=== PATIENT | male | born 1950 | race Hispanic/Latino ===

== ENCOUNTER 2019-04-29 23:57 | Inpatient (IN) | payer OTHER ==
[2019-04-30] MEDS ORDERED: Meclizine HCl 25 MG TAB ONE (00:18)
[2019-04-30 00:47] LABS: #Basophils 0.1 thou/uL (0.0-0.2); #Eosinphils 0.1 thou/uL (0.0-0.7); #Lymphocytes 3.3 thou/uL (1.20-3.40); #Neutrophils 7.2 thou/uL (1.40-6.50); %Basophils 0.9 % (0.0-1.0); %Lymphocytes 28.6 % (21.0-51.0); %Monocytes 8.4 % (0.0-10.0); %Neutrophils 61.2 % (42.0-75.0); Mean Corpuscular HGB CONC 34.6 g/dL (32.0-36.0); Mean Corpuscular Hemoglobin 29.9 pg (27.0-31.0); Mean Corpuscular Volume 86.3 fL (78.0-98.0); Mean Platelet Volume 6.5 fL (7.4-10.4); Platelet Count 257 thou/uL (130-400); RBC Distribution Width 12.1 % (11.5-14.5); Red Blood Cell (RBC) Count 4.68 mill/uL (4.70-6.10); White Blood Cell (WBC) Count 11.7 thou/uL (4.8-10.8)
[2019-04-30 00:53] LABS: INR-International Normal Ratio 1.1; PTT 24.8 SEC (22.9-36.1); Prothrombin Time 14.1 SEC (12.0-14.7)
[2019-04-30 01:06] LABS: ALT (SGPT) 19 U/L (8-55); AST (SGOT) 20 U/L (5-34); Albumin 4.3 g/dL (3.4-4.8); Alkaline Phosphatase 67 U/L (40-110); Anion Gap 15 mmol/L (10-20); BUN (Urea Nitrogen) 28 mg/dL (8.4-25.7); Bilirubin, Total 0.4 mg/dL (0.2-1.2); Calc. Creatinine Clearance 0 mL/min (70-130); Calcium 8.9 mg/dL (7.8-10.44); Carbon Dioxide 23 mmol/L (23-31); Chloride 100 mmol/L (98-107); Estimated GFR-MDRD 42; Globulin 3.1 g/dL (2.4-3.5); Glucose 231 mg/dL (80-115); Potassium 3.1 mmol/L (3.5-5.1); Protein, Total 7.4 g/dL (5.8-8.1); Sodium 135 mmol/L (136-145)
[2019-04-30] MEDS ORDERED: Promethazine HCl 25 MG/ML VIAL ONE (01:40)
[2019-04-30] MEDS ORDERED: Aspirin Chewable 81 MG TAB ONE (02:06)
[2019-04-30 04:31] VITALS: BMI 42.4
[2019-04-30] MEDS: Dextrose 5 % And 0.9 % NaCl 1,000 ML IV SCH ×2 (05:34→11:55)
[2019-04-30] MEDS ORDERED: Meclizine HCl 25 MG TAB PO PRN (06:52)
--- NOTE | 2019-04-30 07:49 | CT ---
PRELIMINARY REPORT/[facility]/EMERGENCY AFTER HOURS PROCEDURE: EXAM: CT Head Without Intravenous Contrast. CLINICAL HISTORY: Vertigo, dizziness, nausea, sob TECHNIQUE: Axial computed tomography images of the head/brain without intravenous contrast. COMPARISON: None provided. FINDINGS: BRAIN: No acute intraparenchymal hemorrhage. No mass lesion. No CT evidence for acute territorial inf arct. No midline shift or extra-axial collection. Areas of hypodensity in the periventricular white matter likely related to chronic microvascular ischemic change. VENTRICLES: No hydrocephalus. ORBITS: The orbits are unremarkable. SINUSES AND MASTOIDS: The paranasal sinuses and mastoid air cells are clear. SOFT TISSUES: No significant facial or scalp soft tissue swelling evident. No radiopaque foreign body is seen. BONES: No acute skull fracture. IMPRESSION: No acute intracranial abnormality. ELECTRONICALLY SIGNED BY: Angela Davis D.O. Apr 30, 2019 12:49:18 AM ELEMENTARY EDUCATION TEACHER FINAL REPORT CT BRAIN WITHOUT CONTRAST: I agree with the preliminary report by Dr. Angela Davis for [facility]. Transcribed Date/Time: 04/30/2019 8:11 AM
--- NOTE | 2019-04-30 08:32 | MRI ---
MRI BRAIN WITHOUT CONTRAST: HISTORY: Nystagmus, vertigo, dizziness, nausea CORRELATION: CT scan from 04/30/2019. FINDINGS: No restricted diffusion is seen. There are multiple foci of T2 prolongation in the periventricular wh ite matter, consistent with chronic small vessel ischemic disease. The ventricular size is appropriate and the basilar cisterns are patent. No evidence of acute infarct, hemorrhage, midline shift or abnormal extra-axial fluid collections is seen. The visualized paranasal sinuses and mastoid air cells are well-aerated. IMPRESSION: No evidence of acute intracranial process.
[2019-04-30] MEDS ORDERED: Acetaminophen 325 MG TAB PO PRN (08:38)
[2019-04-30] MEDS ORDERED: Bisacodyl 5 MG TAB PO PRN (08:38)
[2019-04-30] MEDS ORDERED: Fluticasone Propionate Nasal Spray 16 gm Bottle NASAL PRN (08:38)
[2019-04-30] MEDS ORDERED: traZODone HCl 50 MG TAB PO PRN (08:38)
--- NOTE | 2019-04-30 08:41 | CON ---
DATE OF CONSULTATION: 04/30/2019 CONSULTING PHYSICIAN: Hospitalist Services. IMPRESSION: 1. Probable brainstem stroke. 2. Aspirin failure. 3. Diabetes. 4. Hypertension. PLAN: 1. Add Plavix. 2. Complete stroke workup. HISTORY OF PRESENT ILLNESS: Mr. Ayala is a 68-year-old gentleman, who presented last night with acute unsteadiness, double vision, nausea, mild dysarthria, and some dysmetria. His reports things are better today compared to last night. He has never had anything like this before. PAST MEDICAL HISTORY: As listed above. ALLERGIES: NONE. SOCIAL HISTORY: Positive for alcohol. No tobacco. FAMILY HISTORY: Noncontributory. REVIEW OF SYSTEMS: Ten-system review of systems is otherwise negative. PHYSICAL EXAMINATION: VITAL SIGNS: Blood pressure 142/75, pulse 78, respirations 20, and temperature 98.5. HEENT: Pupils are equal. Conjunctivae clear. There was a mild skew deviation of the eyes with a slight elevation of the left eye compared to the right. Oropharynx is clear. NECK: Supple. No lymphadenopathy. EXTREMITIES: No cyanosis or edema. NEUROLOGIC: He is alert and cooperative. His speech is fluent and clear. Cranial nerves were intact, other than the double vision. Motor exam showed good strength bilaterally. There was no tremor or dysmetria. Sensation was intact to touch. Gait was not tested. No abnormal movements were seen. LABORATORY STUDIES: CBC and coags were normal. Chemistry showed a blood sugar over 200. Renal function was mildly impaired with a creatinine of 1.64. CT scan of the brain without contrast was unremarkable. SUMMARY: Overall the clinical picture appears consistent with a brainstem stroke. Can add Plavix and complete his vascular workup. Job ID: [id number]
[2019-04-30] MEDS ORDERED: Potassium Chloride 20 MEQ TAB PO SCH (08:45)
[2019-04-30] MEDS ORDERED: Iopamidol-370 76% 500 ML 1 ML ONE (10:16)
[2019-04-30] MEDS: metFORMIN 500 MG TAB PO SCH ×2 (10:40→20:29)
[2019-04-30] MEDS: Loratadine 10 MG TAB PO SCH (10:40)
[2019-04-30] MEDS: Aspirin 81 mg Enteric Coated Tablet PO SCH (10:40)
[2019-04-30] MEDS: glipiZIDE 5 MG TAB PO SCH ×2 (10:40→20:29)
[2019-04-30] MEDS: Lisinopril 20 MG TAB PO SCH (10:41)
[2019-04-30] MEDS: Magnesium Oxide 400 MG TAB PO SCH (10:41)
[2019-04-30] MEDS: Cyanocobalamin (Vitamin B-12) 1,000 MCG TAB PO SCH (10:41)
[2019-04-30] MEDS: Alogliptin 6.25 MG TAB PO SCH (10:41)
--- NOTE | 2019-04-30 10:54 | CT ---
CTA OF THE HEAD AND NECK UTILIZING IV CONTRAST AND 3D REFORMATTED IMAGING: COMPARISON: MRI of the brain dated 04/30/2019 at 8:[address] of the brain dated 04/30/2019 at 12:26 a.m. FINDINGS: CTA OF THE NECK: There is emphysematous change involving both lung apices. There are vascular calcifications involvin g the thoracic aorta. The right brachiocephalic artery origin is widely patent. The right subclavia n is patent. The right common carotid artery is patent. Right internal carotid artery is tortuous b ut patent. The proximal aspect of the right external iliac artery is patent. Left common carotid artery is patent. The bifurcation is patent. The left internal carotid artery w ithin the cervical course is patent. Left subclavian artery is patent. Left vertebral artery along its cervical course is patent and slightly dominant. The right vertebral artery is slightly diminutive but patent along its cervical course. The visualized parotid , submandibular, and thyroid glands are normal-appearing. No pathologically e nlarged lymph nodes are evident. The visualized jugular veins appear patent. The visualized aerodigestive tract is patent. There is scattered degenerative and osteoarthritic change. No acute osseous abnormality is evident. There is a nonspecific mildly enlarged 1 mm right paratracheal lymph node. IMPRESSION: 1. No hemodynamically significant stenosis seen within the neck. 2. Tortuosity of the right internal carotid artery without hemodynamically significant stenosis. 3. Diminutive right and dominant left vertebral artery. 4. Emphysema. 5. Nonspecific right paratracheal enlarged lymph node. CTA OF THE HEAD: There is multifocal stenosis and eventual occlusion of the distal right intracranial vertebral artery . Left vertebral artery is patent. The intracranial ICAs are patent. There are moderate calcificat ions involving the cavernous carotids and supraclinoid ICAs. Both ACAs and MCAs are patent. No aneu rysmal dilatation is grossly evident. There is a origin of the right BACON STRINGER. Left posterior comm unicating and left BACON STRINGER appear patent. No definite abnormal enhancement is seen within the brain. The orbits are intact. The skull and ext racranial soft tissues are unremarkable appearing. 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 No a dditional hemodynamically significant stenosis or occlusion is evident.
[2019-04-30] MEDS ORDERED: Atorvastatin Calcium 10 MG TAB PO SCH (21:00)
[2019-04-30] MEDS ORDERED: Amlodipine 5 MG TAB PO SCH (21:00)
--- NOTE | 2019-04-30 22:44 | HP ---
CHIEF COMPLAINT: Diplopia. HISTORY OF PRESENT ILLNESS: The patient is a 68-year-old male with a history of diabetes, hypertension, and hyperlipidemia, who presents to the hospital with complaints of diplopia x1 day. The patient stated that he had some soup last night, felt very nauseated, threw up a few times, got very weak. After that, he started throwing up again, got a little short of breath and at that time, he got very very weak and started having some double vision. He denies any chest tightness, any diarrhea, any fevers or chills. The patient at this time was brought into the hospital for further evaluation. Per the ER note, it was stated that he had a vertigo. However, I questioned him multiple times, he stated that he never had any vertigo. PAST MEDICAL HISTORY: As the followin. He has a history of hypertension. 2. Diabetes. 3. High cholesterolemia. 4. Obesity. PAST SURGICAL HISTORY: He has had no surgical history. SOCIAL HISTORY: The patient drinks every day. He is a former tobacco user. He smokes cigarettes over 10 years. Denies any drug use. ALLERGIES: NO KNOWN DRUG ALLERGIES. MEDICATIONS: He is on the followin. Amlodipine 5 mg daily. 2. Aspirin 81 mg daily. 3. Atorvastatin 10 mg daily. 4. Glipizide 5 mg twice a day. 5. Hydrochlorothiazide 12.5 daily. 6. Lipitor 40 mg daily. 7. Metformin 750 twice a day. 8. Trazodone 200 mg daily. REVIEW OF SYSTEMS: All negative until mentioned in HPI. FAMILY HISTORY: History of diabetes and hypertension. LABORATORY RESULTS: WBC is 11.7, hemoglobin 14.9, hematocrit 40.4, platelets of 257. Chemistry; sodium 135, potassium 3.1, BUN of 20, creatinine 1.64. Troponin x1 is negative. He did have a brain MRI, which indicated chronic vascular disease. PHYSICAL EXAMINATION: VITAL SIGNS: Temperature 97.8, 87, 16, 94% on room, 155/81. GENERAL: He is awake, alert, oriented x3, does not appear in distress. CV: S1, S2 present. No murmurs, rubs, or gallops. LUNGS: Clear to auscultation. No rhonchi or wheezes noted. ABDOMEN: Soft and nontender. Bowel sounds are present x2. EXTREMITIES: No edema. Peripheral pulses are present x2. NEUROVASCULAR: No focal deficits noted. SKIN: No cuts, lesions, or bruises noted. ASSESSMENT AND PLAN: The patient is a very pleasant 68-year-old male, who presents to the hospital with complaints of diplopia. 1. Diplopia. 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 I will consult Neurosurgery. It is possible that the patient started having nausea and vomiting, dropped his pressures a little bit, which could have caused his diplopia, it is unclear. I will also get Ophthalmology to see him. 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 He had diplopia with both eyes open and when individual eyes were checked, he had more diplopia with his left eye compared to his right eye. He does wear glasses. We will add Plavix. I will check lipid panel and we will have to probably titrate up his statin and continue to monitor him closely. May also get an echocardiogram. 2. Diabetes. We will check a hemoglobin A1c. Continue his medications. 3. Chronic kidney disease. We will continue to monitor. Avoid nephrotoxins. 4. Hypertension. We will titrate some of his medication. However, currently, his blood pressure appears to be stable. 5. Deep venous thrombosis prophylaxis. Load with patient on subcu enoxaparin. Job ID: [id number]
[2019-05-01 05:18] LABS: Hemoglobin A1c 9.2 % (4.0-6.0)
[2019-05-01 05:31] LABS: Cardiac Risk 4.5 (Less than 4.5)
[2019-05-01] MEDS: Loratadine 10 MG TAB PO SCH (08:33)
[2019-05-01] MEDS: glipiZIDE 5 MG TAB PO SCH (08:34)
[2019-05-01] MEDS: Lisinopril 20 MG TAB PO SCH (08:34)
[2019-05-01] MEDS: Magnesium Oxide 400 MG TAB PO SCH (08:34)
[2019-05-01] MEDS: Cyanocobalamin (Vitamin B-12) 1,000 MCG TAB PO SCH (08:36)
[2019-05-01] MEDS: Alogliptin 6.25 MG TAB PO SCH (08:36)
[2019-05-01] MEDS: metFORMIN 500 MG TAB PO SCH (08:36)
[2019-05-01] MEDS: Aspirin 81 mg Enteric Coated Tablet PO SCH (08:36)
[2019-05-01] MEDS ORDERED: Clopidogrel Bisulfate 75 MG TAB PO SCH (09:00)
[2019-05-01 15:43] VITALS: BP 159/86; TEMP 97.8
--- NOTE | 2019-05-01 16:58 | DIS ---
DATE OF ADMISSION: 04/30/2019 DATE OF DISCHARGE: 05/01/2019 DISCHARGE DIAGNOSES: 1. Diplopia secondary to possibly brainstem ischemia. 2. Hypertension. 3. Diabetes. 4. Obesity. HOSPITAL COURSE: The patient is a 68-year-old male, who initially presented to the hospital with diplopia. The patient underwent a CT head, which was negative. He underwent an MRI brain, which indicated a chronic vessel disease. 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 At this time, Neurosurgery was consulted, who did not recommend any intervention. Given the patient's diplopia, the patient was seen by Ophthalmology. However, the following day, the patient's diplopia had improved. He initially on arrival had a lid lag of his left eye, which seemed to improve after 24 hours. I did speak with Ophthalmology, who stated that this was most likely secondary to possibly brainstem ischemia. Also, an echocardiogram was done, which indicated an EF of 50% to 55%. with diastolic dysfunction. Left atrium was mildly dilated. Normal right-sided atrium. Mild tricuspid regurgitation. The patient at this time, was already on aspirin. MEDICATIONS: Will be; 1. Plavix 75 mg daily. 2. Fenofibrate 48 daily due to elevated triglycerides. 3. Alogliptin 12.5 daily. 4. Norvasc 5 mg daily. 5. Aspirin 81 mg daily. 6. Atorvastatin 5 mg daily. 7. Glipizide 5 mg twice a day. 8. Hydrochlorothiazide 12.5 daily. 9. Lisinopril 20 mg daily. 10. Metformin 750 twice a day. 11. Trazodone 200 mg as needed. PHYSICAL EXAMINATION: VITAL SIGNS: Temperature of 97.7, pulse 69, respirations 16, oxygen saturation 95% on room air, and blood pressure 140/90. GENERAL: He is awake, alert, and oriented x3. Does not appear in any distress. CV: S1 and S2 present. No murmurs, rubs, or gallops. ABDOMEN: Soft and nontender. Bowel sounds are present x2. I have asked him to [facility]. Also, I have advised him against eating a low carb diet for better blood sugar controls and he will also need to follow up with Ophthalmology. Job ID: [id number]
[2019-05-02] MEDS ORDERED: Fenofibrate 48 MG TAB PO SCH (09:00)
== END 2019-05-01 16:54 | disposition home or self-care (01) | DRG 69 ==
LOC: ERS 23:57 → 2SE 04-30 02:26
PROVIDERS: ADMIT Internal Medicine; ATTEND Internal Medicine
DX: I67.82 Cerebral ischemia (principal); Z68.41 Body mass index [BMI] 40.0-44.9, adult; E11.22 Type 2 diabetes mellitus with diabetic chronic kidney disease; I12.9 Hypertensive chronic kidney disease with stage 1 through stage 4 chronic kidney disease, or unspecified chronic kidney disease; N18.9 Chronic kidney disease, unspecified; E66.9 Obesity, unspecified; I65.01 Occlusion and stenosis of right vertebral artery; E78.5 Hyperlipidemia, unspecified; E78.00 Pure hypercholesterolemia, unspecified; H53.2 Diplopia; R47.1 Dysarthria and anarthria; R27.8 Other lack of coordination; Z87.891 Personal history of nicotine dependence; Z79.82 Long term (current) use of aspirin; Z79.84 Long term (current) use of oral hypoglycemic drugs; Z79.899 Other long term (current) drug therapy; R40.2412 Glasgow coma scale score 13-15, at arrival to emergency department
CPT/HCPCS: 36415; 36416; 70450; 70496; 70498; 70551; 80053; 80061; 83036; 84484; 85025; 85610; 85730; 93005; 93306; 96365; J2550; J8597; Q9967